=== PATIENT | male | born 1960 | race Caucasian/White ===

== ENCOUNTER 2017-06-08 21:48 | Outpatient (CLI) | payer BC ==
--- NOTE | 2017-06-08 23:52 | Ultrasound Preliminary Report ---
Exam: US ABDOMEN LIMITED IMPRESSION: 1. Diffuse heterogeneous, enlarged and echogenic liver. No mass. Findings are nonspecific but could r epresent fatty infiltration. 2. Mildly distended gallbladder without evidence of gallstones or sonographic Carrington sign. 3. Normal caliber common bile duct. RADIA The call report notification system was initiated by Dr. Rachele Tello at 23:46 hrs on 06/08/17. The above findings were discussed with KRISTEN Elaine PA by Dr. Rachele Tello at 23:51 hrs on . SITE ID: [id number]
--- NOTE | 2017-06-09 00:06 | Ultrasound Report ---
EXAM: ABDOMEN ULTRASOUND LIMITED, RUQ EXAM DATE: 06/08/2017 10:54 PM. CLINICAL HISTORY: Right upper quadrant. COMPARISON: None. TECHNIQUE: Real-time scanning was performed with static images obtained. FINDINGS: Liver: Diffusely echogenic and heterogeneous liver parenchyma. No mass. Right liver measures 19.9 cm. Main portal vein flow: Hepatopetal. Gallbladder: Distended gallbladder. No gallstones are noted. No definite gallbladder wall thickening or pericholecystic fluid. Biliary System: CBD measures 5 mm. No intrahepatic or extrahepatic ductal dilatation. Other: Right kidney measures 12.3 cm in length. No hydronephrosis. Small amount of fluid is present i n the upper abdomen. IMPRESSION: 1. Diffusely heterogeneous, enlarged and echogenic liver. No mass. Findings are nonspecific but could represent fatty infiltration. 2. Mildly distended gallbladder without evidence of gallstones or sonographic Carrington sign. 3. Normal caliber common bile duct. RADIA The call report notification system was initiated by Dr. Rachele Tello at 23:46 hrs on 06/08/17. The above findings were discussed with KRISTEN Elaine, PA by Dr. Rachele Tello at 23:51 hrs on . Referring Provider Line: [phone] SITE ID: [id number]
[2017-06-09 00:29] LABS: BASOPHILS # (AUTO) 0.1 10^3/uL (0.0-0.1); BASOPHILS % (AUTO) 1.2 %; EOSINOPHILS # (AUTO) 0.2 10^3/uL (0.0-0.7); EOSINOPHILS % (AUTO) 1.8 %; HGB - HEMOGLOBIN 16.2 g/dL (14.0-18.0); LYMPHOCYTES # (AUTO) 2.4 10^3/uL (1.5-3.5); LYMPHOCYTES % (AUTO) 22.1 %; MEAN CORPUSCULAR HGB CONC 34.4 g/dL (32.0-36.0); MEAN CORPUSCULAR VOLUME 87.1 fL (80.0-94.0); MEAN PLATELET VOLUME 7.7 fL (7.4-11.4); MONOCYTES # (AUTO) 0.8 10^3/uL (0.0-1.0); MONOCYTES % (AUTO) 7.7 %; NEUTROPHILS # (AUTO) 7.3 10^3/uL (1.5-6.6); NEUTROPHILS % (AUTO) 67.2 %; PLT - PLATELET COUNT 275 10^3/uL (130-450); RED CELL DISTRIBUTION WIDTH 13.4 % (12.0-15.0); WHITE BLOOD COUNT 10.8 x10^3/uL (4.8-10.8)
[2017-06-09 00:33] LABS: ALBUMIN 4.5 g/dL (3.2-5.5); ALBUMIN/GLOBULIN RATIO 1.4 (1.0-2.2); BILIRUBIN,TOTAL 1.1 mg/dL (0.2-1.0); CALCIUM 9.5 mg/dL (8.5-10.3); CREATININE 0.9 mg/dL (0.6-1.2); TOTAL PROTEIN 7.7 g/dL (6.7-8.2)
[2017-06-09 17:59] LABS: AMYLASE 43 U/L (28-100); LIPASE 16 U/L (22-51)
== END 2017-06-08 21:49 | disposition home or self-care (01) ==
LOC: DI 21:48
PROVIDERS: ATTEND Physician Assistant
DX: R16.0 Hepatomegaly, not elsewhere classified (principal); K82.8 Other specified diseases of gallbladder
CPT/HCPCS: 36415; 76705; 80053; 82150; 83690; 85025

== ENCOUNTER 2017-06-09 15:46 | Outpatient (CLI) | payer BC ==
[2017-06-09] MEDS ORDERED: IOPAMIDOL-300 50 ML VIAL ONE (16:05)
[2017-06-09] MEDS ORDERED: IOPAMIDOL-300 100 ML VIAL ONE (16:05)
[2017-06-09] MEDS ORDERED: IOPAMIDOL-300 50 ML VIAL PO ONE (17:31)
[2017-06-09] MEDS ORDERED: IOPAMIDOL-300 100 ML VIAL IVP ONE (17:31)
--- NOTE | 2017-06-09 18:41 | CT Report ---
EXAM: CT ABDOMEN AND PELVIS EXAM DATE: 06/09/2017 05:19 PM. CLINICAL HISTORY: Right upper quadrant/ right lower quadrant pain. Diverticulitis? COMPARISONS: None. TECHNIQUE: Routine helical CT imaging was performed through the abdomen and pelvis. IV contrast: 100 mL of Isovue-300. Enteric contrast: Yes. Reconstructions: Coronal and sagittal. In accordance with CT protocol optimization, one or more of the following dose reduction techniques w ere utilized for this exam: automated exposure control, adjustment of mA and/or KV based on patient s ize, or use of iterative reconstructive technique. FINDINGS: Lung Bases: Posterior right base atelectasis/scarring. Liver: Normal. No masses. Gallbladder/Bile Ducts: Unremarkable. Spleen: Normal. Pancreas: Normal. Adrenal Glands: Normal. Kidneys: Normal. No masses or hydronephrosis. Peritoneal Cavity/Bowel: Irregular ring-shaped fat stranding anterior to the right colon. Trace free fluid. No free air or adenopathy. No masses or acute inflammatory process. The appendix is well visua lized and normal. Pelvic Organs: The prostate and bladder are unremarkable. Vasculature: No aneurysms or other significant abnormality. Bones: Degenerative disk disease at L5-S1. Other: Fat-containing umbilical hernia. IMPRESSION: 1. Irregular ring-shaped fat stranding anterior to the right colon compatible with epiploic appendagi tis. 2. Trace free fluid. 3. Fat-containing umbilical hernia noted. RADIA The call report notification system was initiated by Dr. Danish Alston at 17:53 hrs on 06/09/17. The above findings were discussed with AnneM-arie Love by Dr. Danish Alston at 18:14 hrs on 06/09/17. Referring Provider Line: [phone] SITE ID: [id number]
== END 2017-06-09 15:47 | disposition home or self-care (01) ==
LOC: DI 15:46
PROVIDERS: ATTEND Physician Assistant
DX: R10.11 Right upper quadrant pain (principal); R10.31 Right lower quadrant pain; K42.9 Umbilical hernia without obstruction or gangrene; R93.5 Abnormal findings on diagnostic imaging of other abdominal regions, including retroperitoneum
CPT/HCPCS: 74177; Q9967

== ENCOUNTER 2024-03-15 09:33 | Inpatient (IN) ==
[2024-03-15] MEDS: SODIUM CHLORIDE 0.9% 1,000 ML IV STA ×4 (10:11→15:11)
[2024-03-15 10:15] LABS: BASOPHILS % (AUTO) 0.5 %; EOSINOPHILS # (AUTO) 0.1 10^3/uL (0.0-0.7); EOSINOPHILS % (AUTO) 1.3 %; HCT - HEMATOCRIT 47.4 % (42.0-52.0); HGB - HEMOGLOBIN 16.2 g/dL (14.0-18.0); LYMPHOCYTES # (AUTO) 0.4 10^3/uL (1.5-3.5); LYMPHOCYTES % (AUTO) 5.8 %; MEAN CORPUSCULAR HEMOGLOBIN 29.3 pg (27.0-31.0); MEAN CORPUSCULAR HGB CONC 34.2 g/dL (32.0-36.0); MEAN CORPUSCULAR VOLUME 85.9 fL (80.0-94.0); MEAN PLATELET VOLUME 9.6 fL (7.4-11.4); MONOCYTES # (AUTO) 0.1 10^3/uL (0.0-1.0); MONOCYTES % (AUTO) 1.9 %; NEUTROPHILS # (AUTO) 6.7 10^3/uL (1.5-6.6); NEUTROPHILS % (AUTO) 90.2 %; PLT - PLATELET COUNT 103 10^3/uL (130-450); RED BLOOD COUNT 5.52 10^6/uL (4.70-6.10); RED CELL DISTRIBUTION WIDTH 12.6 % (12.0-15.0); WHITE BLOOD COUNT 7.4 x10^3/uL (4.8-10.8)
--- NOTE | 2024-03-15 10:23 | ED Physician Documentation ---
History of Present Illness Stated complaint Stated Complaint: CHILLS, FEVER, VOMITTING Chief complaint Chief Complaint: Fever History obtained from History obtained from: Patient Additonal information Additional information: 63-year-old male presents to the emergency department with fever and bodyaches ongoing for the past 2 days. No cough or congestion. Nothing seems to make it worse. States took a COVID test that was negative. He denies any abdominal pain or back pain. No neck pain. No headache. He states he did have 1 episode of emesis. No diarrhea. No recent travel. No antibiotics. He states that he does take medications at home but he does not know which ones. Denies any implanted medical devices. No sore throat. No rash. No rhinorrhea. 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 Review of Systems Constitutional Reports: Fever, Chills and Malaise Ears, nose, mouth, and throat Denies: Ear pain, Nasal congestion or Throat pain Cardiovascular Denies: chest pain Respiratory Denies: Cough Gastrointestinal Denies: Abdominal pain Meds/Allgy Home Medications Ambulatory Orders Medication Instructions Recorded Confirmed atorvastatin 40 mg tablet mg 03/15/24 glipizide 5 mg tablet mg 03/15/24 metformin 500 mg tablet,extended mg PO 03/15/24 release 24 hr Allergies Allergies Allergy/AdvReac Type Severity Reaction Status Date / Time Sulfa (Sulfonamide Allergy Unknown Hives Verified 03/15/24 09:55 Antibiotics) [facility] Medical History Medical History (Updated 03/15/24 @ 15:14 by Jose Angelo MD) Prediabetes Social History Social History (Updated 03/15/24 @ 09:53 by Evangelina Dow, RN, BSN) Smoking Status: Unknown if ever smoked Do you dip or chew tobacco?: Yes Relationship: Do you feel safe in your home environment?: Yes Suffered physical, verbal, emotional, or financial abuse?: No Exam Constitutional normal general appearance and no apparent distress HENMT normocephalic, TMs normal bilaterally, oral mucous membranes normal and oropharynx normal Eyes PERRL No conjunctival injection Neck/C-Spine visual inspection normal and no meningeal signs Lymph No cervical lymphadenopathy Chest inspection of chest normal Respiratory breath sounds equal bilaterally and normal respiratory effort Cardiovascular normal heart rate noted, regular rhythm noted and no murmur Gastrointestinal abdomen normal to inspection, abdomen soft to palpation, nontender to palpation and nondistended Genitourinary no CVA tenderness Back/Pelvis no thoracic spine tenderness and no lumbar spine tenderness Extremities normal to inspection and normal to palpation Neurology GCS 15 Psychiatry mental status grossly normal and oriented x3 Skin no rash Results Vitals Vitals: Vital Signs - 24 hr 03/15/24 09:36 03/15/24 10:30 03/15/24 11:00 Temperature 37.2 C Temperature Source Oral Pulse Rate 101 H 90 93 H Respiratory Rate 28 H 26 H 30 H Blood Pressure 135/100 H 145/96 H 148/87 H O2 Saturation 93 92 96 O2 Source Room air Room air Room air Pain Intensity 0 03/15/24 11:30 03/15/24 12:00 03/15/24 12:30 Temperature Temperature Source Pulse Rate 94 H 92 H 95 H Respiratory Rate 30 H 31 H 33 H Blood Pressure 133/95 H 147/101 H 151/93 H O2 Saturation 96 94 94 O2 Source Room air Room air Room air Pain Intensity 3 0 03/15/24 13:00 03/15/24 14:00 03/15/24 14:18 Temperature 39.1 C H Temperature Source Oral Pulse Rate 97 H 118 H Respiratory Rate 35 H Blood Pressure 155/75 H 189/96 H O2 Saturation 94 94 O2 Source Room air Pain Intensity 3 4 0 03/15/24 14:30 03/15/24 15:00 03/15/24 15:30 Temperature Temperature Source Pulse Rate 115 H 111 H 105 H Respiratory Rate 35 H 28 H 35 H Blood Pressure 152/127 H 151/90 H 147/95 H O2 Saturation 94 93 O2 Source Room air Room air Room air Pain Intensity 0 0 0 03/15/24 15:59 Temperature 37.7 C Temperature Source Oral Pulse Rate Respiratory Rate Blood Pressure O2 Saturation O2 Source Pain Intensity 0 Oxygen O2 Source Room air Labs Labs: Laboratory Tests 03/15/24 03/15/24 03/15/24 10:07 10:25 12:16 WBC 7.4 RBC 5.52 Hgb 16.2 Hct 47.4 MCV 85.9 MCH 29.3 MCHC 34.2 RDW 12.6 Plt Count 103 L MPV 9.6 Neut # (Auto) 6.7 H Lymph # (Auto) 0.4 L Sanders # (Auto) 0.1 Eos # (Auto) 0.1 Baso # (Auto) 0.0 Absolute Nucleated RBC 0.00 Nucleated RBC % 0.0 PT INR APTT Sodium 130 L Potassium 3.9 Chloride 95 L Carbon Dioxide 24 Anion Gap 11.0 BUN 20 Creatinine 1.3 Estimated GFR (MDRD) 56 L Glucose 295 H Lactic Acid Calcium 8.5 Total Bilirubin 2.9 H AST 420 H ALT 395 H Alkaline Phosphatase 54 Total Protein 6.2 L Albumin 4.1 Globulin 2.1 Albumin/Globulin Ratio 2.0 Lipase 13 Procalcitonin Immunoas Urine Color Urine Clarity Urine pH Ur Specific [place] Urine Protein Urine Glucose (UA) Urine Ketones Urine Occult Blood Urine Nitrite Urine Bilirubin Urine Urobilinogen Ur Leukocyte Esterase Urine RBC Urine WBC Ur Epithelial Cells Ur Squamous Epith Cells Urine Bacteria Urine Casts Ur Microscopic Review Urine Culture Comments Nasal Adenovirus (PCR) NOT DETECTED Nasal B. parapertussis DNA (PCR) NOT DETECTED Nasal Coronavir 229E PCR NOT DETECTED Nasal Coronavir HKU1 PCR NOT DETECTED Nasal Coronavir NL63 PCR NOT DETECTED Nasal Coronavir OC43 PCR NOT DETECTED Nasal Enterovir/Rhinovir PCR NOT DETECTED Nasal Influenza B PCR NOT DETECTED Nasal Influenza A PCR NOT DETECTED Nasal Parainfluen 1 PCR NOT DETECTED Nasal Parainfluen 2 PCR NOT DETECTED Nasal Parainfluen 3 PCR NOT DETECTED Nasal Parainfluen 4 PCR NOT DETECTED Nasal RSV (PCR) NOT DETECTED Nasal B.pertussis DNA PCR NOT DETECTED Nasal C.pneumoniae (PCR) NOT DETECTED Ramon Human Metapneumo PCR NOT DETECTED Nasal M.pneumoniae (PCR) NOT DETECTED Nasal SARS-CoV-2 (PCR) NOT DETECTED Infectious Sanders Assay NEGATIVE 03/15/24 03/15/24 03/15/24 13:09 14:15 14:17 WBC RBC Hgb Hct MCV MCH MCHC RDW Plt Count MPV Neut # (Auto) Lymph # (Auto) Sanders # (Auto) Eos # (Auto) Baso # (Auto) Absolute Nucleated RBC Nucleated RBC % PT INR APTT Sodium Potassium Chloride Carbon Dioxide Anion Gap BUN Creatinine Estimated GFR (MDRD) Glucose Lactic Acid 7.2 H* Calcium Total Bilirubin AST ALT Alkaline Phosphatase Total Protein Albumin Globulin Albumin/Globulin Ratio Lipase Procalcitonin Immunoas 18.56 H* Urine Color DARK YELLOW Urine Clarity CLEAR Urine pH 5.5 Ur Specific [place] >=1.030 H Urine Protein 30 H Urine Glucose (UA) >=1000 H Urine Ketones 15 H Urine Occult Blood LARGE H Urine Nitrite NEGATIVE Urine Bilirubin NEGATIVE Urine Urobilinogen 0.2 (NORMAL) Ur Leukocyte Esterase NEGATIVE Urine RBC 6-10 H Urine WBC 0-3 Ur Epithelial Cells RARE Renal Tubular Ur Squamous Epith Cells NONE SEEN Urine Bacteria Few Urine Casts 0-2 Hyaline Casts Ur Microscopic Review INDICATED Urine Culture Comments NOT INDICATED Nasal Adenovirus (PCR) Nasal B. parapertussis DNA (PCR) Nasal Coronavir 229E PCR Nasal Coronavir HKU1 PCR Nasal Coronavir NL63 PCR Nasal Coronavir OC43 PCR Nasal Enterovir/Rhinovir PCR Nasal Influenza B PCR Nasal Influenza A PCR Nasal Parainfluen 1 PCR Nasal Parainfluen 2 PCR Nasal Parainfluen 3 PCR Nasal Parainfluen 4 PCR Nasal RSV (PCR) Nasal B.pertussis DNA PCR Nasal C.pneumoniae (PCR) Ramon Human Metapneumo PCR Nasal M.pneumoniae (PCR) Nasal SARS-CoV-2 (PCR) Infectious Sanders Assay 03/15/24 16:10 WBC RBC Hgb Hct MCV MCH MCHC RDW Plt Count MPV Neut # (Auto) Lymph # (Auto) Sanders # (Auto) Eos # (Auto) Baso # (Auto) Absolute Nucleated RBC Nucleated RBC % PT 18.7 H INR 1.8 H APTT 26.3 Sodium Potassium Chloride Carbon Dioxide Anion Gap BUN Creatinine Estimated GFR (MDRD) Glucose Lactic Acid 3.7 H* Calcium Total Bilirubin AST ALT Alkaline Phosphatase Total Protein Albumin Globulin Albumin/Globulin Ratio Lipase Procalcitonin Immunoas Urine Color Urine Clarity Urine pH Ur Specific [place] Urine Protein Urine Glucose (UA) Urine Ketones Urine Occult Blood Urine Nitrite Urine Bilirubin Urine Urobilinogen Ur Leukocyte Esterase Urine RBC Urine WBC Ur Epithelial Cells Ur Squamous Epith Cells Urine Bacteria Urine Casts Ur Microscopic Review Urine Culture Comments Nasal Adenovirus (PCR) Nasal B. parapertussis DNA (PCR) Nasal Coronavir 229E PCR Nasal Coronavir HKU1 PCR Nasal Coronavir NL63 PCR Nasal Coronavir OC43 PCR Nasal Enterovir/Rhinovir PCR Nasal Influenza B PCR Nasal Influenza A PCR Nasal Parainfluen 1 PCR Nasal Parainfluen 2 PCR Nasal Parainfluen 3 PCR Nasal Parainfluen 4 PCR Nasal RSV (PCR) Nasal B.pertussis DNA PCR Nasal C.pneumoniae (PCR) Ramon Human Metapneumo PCR Nasal M.pneumoniae (PCR) Nasal SARS-CoV-2 (PCR) Infectious Sanders Assay Rads (name of study) cxr: Relevant Findings:: Final report received ct abd/pelvis: Relevant Findings:: Final report received RUQ US: Relevant Findings:: Final report received PD Medical Decision Making ED course Complexity details: reviewed results and d/w patient ED course: 63-year-old male with a history of diabetes presents with fever. Unclear etiology. No acute findings on chest x-ray, right upper quadrant ultrasound or CT abdomen pelvis to explain his symptoms. Does have elevation of his liver function tests and mild elevation of his bilirubin. Acute hepatitis panel was sent. Blood cultures drawn. Lactic acid elevated at 7.2. Procalcitonin elevated at 18.56. White blood cell count normal. Spiked another fever in the emergency department. Treated with Motrin. Covered with vancomycin and Zosyn. Could potentially be a viral syndrome with the thrombocytopenia and lymphopenia. But given the elevation of lactate and procalcitonin, we will admit for further care. He is persistently tachycardic as well. Discussed the case with Dr. Mohamud, hospitalist who accepts. This document was made in part using voice recognition software. While efforts are made to proofread this document, sound alike and grammatical errors may occur. Discharge Plan Discharge Patient Disposition: 68 [facility] DC/Xfer Condition: Stable Clinical Impression: Fever Qualifiers: Fever type: unspecified Qualified Code(s): R50.9 - Fever, unspecified Sepsis Qualifiers: Sepsis type: sepsis due to unspecified organism Sepsis acute organ dysfunction status: unspecified Qualified Code(s): A41.9 - Sepsis, unspecified organism
[2024-03-15 10:45] LABS: ALBUMIN 4.1 g/dL (3.2-5.5); BILIRUBIN,TOTAL 2.9 mg/dL (0.2-1.0); CALCIUM 8.5 mg/dL (8.5-10.3); CREATININE 1.3 mg/dL (0.6-1.3); POTASSIUM 3.9 mmol/L (3.5-4.5); TOTAL PROTEIN 6.2 g/dL (6.4-8.9)
--- NOTE | 2024-03-15 10:50 | XRAY Report ---
PROCEDURE: XR Chest 1V INDICATIONS: fever TECHNIQUE: One view of the chest was acquired. COMPARISON: None. FINDINGS: Whtq-bi-lpeatioj bilateral perihilar and lower lobe peribronchial thickening with patchy opacities mo re than expected for expiratory result and bibasilar subsegmental atelectasis. Bronchitis, viral inf ection, bronchopneumonia, asthma or other process should be considered. Follow-up suggested. Moderately elevated right hemidiaphragm compared to the left. Less likely represent right subpulmonic effusion given the appearance. Xitf-og-mbigbcylbo prominent [place], pulmonary vascular congestion and possible hilar lymph nodes. No pneumothorax, no pleural effusion. Cardiopericardial silhouette within normal limits in size. IMPRESSION: Gsmw-up-iujvsply peribronchial thickening and patchy opacities as discussed above. Mild to moderately prominent val[place]. Moderately elevated right hemidiaphragm. Follow-up suggested. If symptoms persist or worsen, or there is high clinical suspicion of abnormalit y, MRI could be performed. Reviewed by: Houston Shepard MD on 03/15/2024 10:49 AM PST Approved by: Houston Shepard MD on 03/15/2024 10:49 AM PST Station ID: [id number]
[2024-03-15 11:14] LABS: B. PARAPERTUSSIS- RESP PCR PAN NOT DETECTED; B. PERTUSSIS- RESP PCR PANEL NOT DETECTED; C. PNEUMONIAE- RESP PCR PANEL NOT DETECTED; CORONAVIRUS 229E-RESP PCR NOT DETECTED; CORONAVIRUS HKU1-RESP PCR NOT DETECTED; CORONAVIRUS NL63-RESP PCR NOT DETECTED; CORONAVIRUS OC43-RESP PCR NOT DETECTED; HUMAN METAPNEUMOVIRUS NOT DETECTED; INFLUENZA A- RESP PCR PANEL NOT DETECTED; INFLUENZA B - RESP PCR PANEL NOT DETECTED; M. PNEUMONIAE- RESP PCR PANEL NOT DETECTED; PARAINFLUENZA VIRUS 1 NOT DETECTED; PARAINFLUENZA VIRUS 2 NOT DETECTED; PARAINFLUENZA VIRUS 3 NOT DETECTED; PARAINFLUENZA VIRUS 4 NOT DETECTED; RHINOVIRUS/ENTEROVIRUS NOT DETECTED; RSV- RESP PCR PANEL NOT DETECTED; SARS-CoV-2 -RESP PCR PANEL NOT DETECTED
[2024-03-15] MEDS ORDERED: iohexoL-300 100 ML VIAL ONE ×2 (12:21→19:39)
[2024-03-15 12:26] LABS: INFECTIOUS MONONUCLEOSIS NEGATIVE (Negative)
[2024-03-15 13:17] LABS: BILIRUBIN,URINE NEGATIVE (NEGATIVE); GLUCOSE, URINE (UA) >=1000 mg/dL (NEGATIVE); KETONES,URINE (UA) 15 mg/dL (NEGATIVE); LEUKOCYTE ESTERASE, URINE NEGATIVE (NEGATIVE); NITRITE,URINE NEGATIVE (NEGATIVE); OCCULT BLOOD,URINE LARGE (NEGATIVE); PH,URINE 5.5 PH (5.0-7.5); PROTEIN,URINE 30 mg/dL (NEGATIVE); UROBILINOGEN,URINE 0.2 (NORMAL) E.U./dL (NORMAL)
[2024-03-15 13:18] LABS: CLARITY,URINE CLEAR (CLEAR)
[2024-03-15 13:25] LABS: BACTERIA,URINE Few /HPF (None Seen); CASTS, URINE 0-2 Hyaline Casts /LPF; EPITHELIAL CELLS,UR RARE Renal Tubular /HPF (<= Few); SQUAMOUS EPITHELIAL CELL,UR NONE SEEN (<= Few); WBC,URINE 0-3 /HPF (0-3)
--- NOTE | 2024-03-15 13:40 | Ultrasound Report ---
PROCEDURE: US Abdomen Limited INDICATIONS: fever RUQ pain, elevated LFT TECHNIQUE: Real-time focused scanning was performed of the abdomen, with image documentation. COMPARISONS: CT of abdomen and pelvis dated 06/09/2017 and ultrasound of abdomen dated 06/08/2017. FINDINGS: Liver: Liver is mildly enlarged and measures 17.9 cm in length. Heterogeneous liver parenchymal echo texture is seen. Gallbladder: Limited evaluation of gallbladder due to overlying bowel gas. No gallstone is seen. No g allbladder wall thickening or pericholecystic fluid. No sonographic Carrington's sign. Biliary ducts: Intrahepatic bile ducts are non-dilated. Extrahepatic biliary ducts are not well seen . No gross dilated duct is seen. Pancreas: Not well visualized due to overlying bowel gas. Right kidney: Normal in size and echotexture. Right kidney measures 11.8 cm long. No hydronephrosis or nephrolithiasis. No solid masses. No complex renal cystic lesions which require follow-up. IVC: Intrahepatic inferior vena cava is patent. Miscellaneous: No free abdominal fluid. IMPRESSION: 1. Limited study due to patient's body habitus and overlying bowel gas. 2. Borderline hepatomegaly and hepatic steatosis, no discrete hepatic lesion. 3. No sonographic evidence of cholelithiasis or acute cholecystitis. No intrahepatic biliary ductal d ilatation. Common bile that is not well seen. No obvious biliary ductal dilatation. 4. Pancreas is not visualized. Right kidney is within normal limits. Reviewed by: Jasper Murrell MD on 03/15/2024 1:39 PM PST Approved by: Jasper Murrell MD on 03/15/2024 1:39 PM PST Station ID: [id number]
--- NOTE | 2024-03-15 13:48 | CT Report ---
PROCEDURE: CT Abdomen/Pelvis W INDICATIONS: fever, elevated LFT CONTRAST: omni 300, 100 TECHNIQUE: After the administration of intravenous contrast, a CT scan of the abdomen and pelvis was performed. Images were recorded and evaluated at appropriate window settings. Reformats: coronal and sagittal. F or radiation dose reduction, the following was used: automated exposure control, adjustment of mA and /or kV according to patient size. COMPARISON: Ultrasound of abdomen from the same day and CT of abdomen and pelvis dated 06/09/2017. FINDINGS: Image quality: Diagnostic. Lower chest: Scarring/atelectasis in posterior medial right lung base is seen. Heart size is normal, no pericardial effusion. Liver: No solid mass. Hepatomegaly and moderate to severe hepatic steatosis is seen. Gallbladder: No radiopaque stones or wall thickening. Biliary tree: No intrahepatic or extrahepatic dilation, accounting for age. Spleen: No splenomegaly. Pancreas: No pancreatic ductal dilation. Adrenals: No adrenal nodule. Kidneys and ureters: No hydronephrosis. No renal cystic lesion which requires follow up. No solid mas s. Stomach, bowel and peritoneum: No gastric or small bowel dilation. No abnormal wall thickening. No pa thologic free fluid. The appendix is visualized in right lower quadrant and is within normal limits. No peritoneal free air. No abscess collection. Lymph nodes: No central or retroperitoneal adenopathy. Vessels: No infrarenal aortic aneurysm. Patent portal vein. PELVIS Reproductive organs: Unremarkable. Bladder: No abnormal wall thickening, accounting for underdistention. Pelvic lymph nodes: No pelvic adenopathy by size criteria. Bones: No aggressive osseous abnormality. Degenerative endplate changes are noted in lumbar spine. Gr alfred 1 5 mm retrolisthesis of L5 on S1 is seen. Other: Small fat-containing umbilical hernia is seen. No significant inguinal hernia. IMPRESSION: 1. Hepatomegaly and moderate to severe hepatic steatosis, no discrete hepatic lesion. 2. Normal-appearing gallbladder. No biliary ductal dilatation. 3. No bowel obstruction or abnormal bowel wall thickening. Normal appendix. No free fluid of free air . Reviewed by: Jasper Mills MD on 03/15/2024 1:47 PM PST Approved by: Jasper Mills MD on 03/15/2024 1:47 PM PST Station ID: [id number]
[2024-03-15] MEDS: ONDANSETRON 4 MG/2 ML VIAL IVP STA (14:18)
[2024-03-15] MEDS: IBUPROFEN 800 MG TABLET PO STA (14:18)
[2024-03-15] MEDS: iohexoL-300 100 ML VIAL IVP ONE (14:21)
[2024-03-15] MEDS: PIPERACILLIN/TAZOBACTAM 4.5 GM in SODIUM CHLORIDE 0.9% MINIBAG 100 ML IV STA (15:42)
[2024-03-15] MEDS: VANCOMYCIN INJ 1.75 GM in SODIUM CHLORIDE 0.9% 500 ML IV ONE (15:43)
[2024-03-15] MEDS: VANCOMYCIN INJ 1.75 GM in SODIUM CHLORIDE 0.9% 500 ML IV SCH (16:00)
[2024-03-15 16:24] LABS: PARTIAL THROMBOPLASTIN TIME 26.3 secs (24.9-33.3)
[2024-03-15 16:28] LABS: INR 1.8 (0.8-1.2); PT - PROTHROMBIN TIME 18.7 secs (9.9-12.6)
[2024-03-15 16:32] LABS: LACTIC ACID, VENOUS 3.7 mmol/L (0.5-2.2)
[2024-03-15] MEDS ORDERED: VANCOMYCIN INJ 1 GM in SODIUM CHLORIDE 0.9% 500 ML IV SCH (17:00)
[2024-03-15] MEDS ORDERED: oxyCODONE 5 MG TABLET PO PRN (17:22)
[2024-03-15] MEDS ORDERED: ONDANSETRON ODT 4 MG TABLET TL PRN (17:22)
[2024-03-15] MEDS ORDERED: SODIUM CHLORIDE FLUSH 0.9% 10 ML SYRINGE IVP PRN (17:22)
--- NOTE | 2024-03-15 18:02 | HISTORY & PHYSICAL EXAMINATION ---
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 He states that he woke up at 3 in the morning on March 14 with his teeth chattering. Sudden onset. The next day he managed to deliver some cattle for [place], came home and just spent the rest of his day asleep. Fever was up to 106. Today, when the fever would not go away with Motrin and Tylenol he came to the emergency room. His last recent travel was to go grouse hunting in December. He did not drink any ground water. He drank his own bottle water that he took with him. Otherwise he has been home. I do have well water. He drinks that. As far as he knows the water is okay. It supposed to be checked every year but he cannot remember when the last time it was. The family drinks from the same well and no one else is sick. He does raise cattle, pulido, and hogs for the [employer] business that sells meat. He is shoveling maneuver, works his herds, and does have exposure to a barn. Nobody else in his family is sick. He has not had any changes in diet. This year he did have a bout of diarrhea that went on for several weeks. He noticed that the diarrhea only happened when he was home but not when he was traveling for work in [employer]. He finally figured out that he thinks it was a crack in his coffee cup. It was a double lumen cup. That may be bacteria got caught on it and he was drinking it. Once he stopped drinking out of that cup, his diarrhea stopped. He did have a colonoscopy about 11 years ago. It was normal. On review of systems he wears glasses, but denies photophobia, headache, sore throat, runny nose, eustachian tube dysfunction or ear pain. He denies neck pain, adenopathy of his neck. He denies cough, chest congestion, chest pain, pleuritic or otherwise. He has no history of lung disease. He chews tobacco but does not smoke. He denies chest pain, palpitations, any recent change in cardiovascular endurance until he got this fever. He has no pedal edema. Orthopnea. Right now he has diffuse musculoskeletal pain from the fever. He is miserable with it. But no specific joint pain, skin changes, body rashes. He denies depression, anxiety. He has been under tremendous amount of stress. 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 He is awaiting the final vote count. He has developed decree stream, nocturia once at night. He thinks he may be developing prostate problems. But there has been no urgency, frequency, dysuria or flank pain. No blood in his urine. Other than the diarrhea no other change in bowel habits. Denies unexpected weight changes, weight gains. No heat or cold intolerance. He denies seizures, syncope, memory loss. Denies photophobia, headache, nuchal rigidity. In the emergency room he was examined by the primary ER provider and he has not been hypotensive. In fact blood pressure has been on the high side in the 140s systolic and occasionally as high as 189/96. O2 sats have been normal on room air. Pulse has been tachycardic consistently. Mainly associated with fever. High as 118. Other than the fever, his exam is been normal. Sodium is mildly hyponatremic 130 for him. Chloride is low at 95. His GFR has dropped to 56 from his normal 88. His creatinine has increased to 1.3 from his normal 0.9. Glucose is 295. He is taking his glipizide and his metformin. Lactic acid is 7.2. Total bili has been intermittently elevated in the past but the highest has been is 1.1. He is 2.9 tonight. AST and ALT in the past have been normal. And tonight they are 420 and 395 respectively. White cell count is normal at 7.4. Hemoglobin 16.2. Stable from previous labs. Platelet is low at 103 and he was 275 in the past. Urinalysis has a specific gravity that is high at 1.030 so I believe he is dehydrated. He has proteinuria 30 mg/dL. He has glucosuria over 1000 mg/dL. Ketones are high at 15. Occult blood is large, with 6-10 red cells per high-powered field. No leukocyte Estrace. No urine bilirubin. No urine urobilinogen. Rare renal tubular cells. Because his liver enzymes were elevated he underwent an ultrasound but it was limited due to the patient's obesity and overlying bowel gas. He has borderline hepatomegaly and hepatic steatosis with no discrete lesions. There is no sonographic evidence of cholelithiasis, acute cholecystitis. Pancreas not well- visualized. As such a CT of the abdomen was done to visualize his belly better and he has scarring and atelectasis in the posterior medial right lung. Liver has hepatomegaly with moderate to severe hepatic steatosis. Gallbladder without stones. Or wall thickening. No splenomegaly and no intrahepatic or extrahepatic dilation. No pancreatic ductal dilatation. No adrenal nodules. No renal cyst, no hydronephrosis. There is no commentary on the prostate. Stomach, bowel, peritoneum are normal. Appendix is visualized and within normal limits. No central or retroperitoneal adenopathy. No aortic aneurysms, patent portal vein. He has a small fat-containing umbilical hernia. He states that his diabetes is controlled. He denies any retinal, renal, neurologic complications. He has never been hospitalized. He has no orthopedic injuries. And is never had surgery. Meds/Allgy Home Medications Ambulatory Orders Medication Instructions Recorded Confirmed atorvastatin 40 mg tablet mg 03/15/24 glipizide 5 mg tablet mg 03/15/24 metformin 500 mg tablet,extended mg PO 03/15/24 release 24 hr Allergies Allergies Allergy/AdvReac Type Severity Reaction Status Date / Time Sulfa (Sulfonamide Allergy Unknown Hives Verified 03/15/24 09:55 Antibiotics) [facility] Medical History Medical History (Updated 03/15/24 @ 18:37 by Catherine Mohamud MD) Controlled type 2 diabetes mellitus without complication, without long-term current use of insulin Hypertension Hyperlipidemia Family History Family History (Updated 03/15/24 @ 18:28 by Catherine Mohamud MD) Father CVA (cerebral vascular accident) Mother Brother Alcoholism Alcohol abuse Sister Healthy adult on routine physical examination Brother Healthy adult on routine physical examination Daughter Lupus (systemic lupus erythematosus) Daughter Healthy adult on routine physical examination Daughter Healthy adult on routine physical examination Social History Social History (Updated 03/15/24 @ 18:31 by Catherine Mohamud MD) Smoking Status: Never smoker Second hand tobacco smoke exposure: No Do you dip or chew tobacco?: Yes Do you vape?: No Initiate information on smoking cessation: No Living arrangement: At home Marital Status: Living Condition: With family Support Person: Yes Relationship: Spouse Living Situation Details: lives with , 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 Dresses himself, feed himself. Pays bills. Very active life. 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 POLST Patient has POLST: No POLST Status: Full Code Review of Systems Status of ROS: 10 or more systems reviewed and unremarkable except as noted in history and below Ears, nose, mouth, and throat Denies: Throat swelling Hematologic/Lymphatic Denies: Anemia, Easy bruising or Petechiae Allergic/Immunologic Denies: Hives, Throat swelling, Tongue swelling or Facial swelling Prior Level of Functionality: As above. Exam Exam Morbidly obese white male who looks stated age, bearded, cheeks are flushed, skin is hot to touch, eyes are glazed. Able to go from ER gurney to the bed with standby assist but wobbly on his feet. He tells me he has a very foggy brain and cannot think very clearly. Constitutional normal general appearance HENMT hearing grossly normal bilaterally and TMs normal bilaterally Eyes PERRL, EOMs intact bilaterally, conjunctivae normal and no scleral icterus Neck/C-Spine trachea midline, supple, no meningeal signs, thyroid normal and no carotid bruits Lymph no lymphadenopathy noted Chest palpation of chest normal Respiratory breath sounds equal bilaterally, normal respiratory effort, clear to auscultation bilaterally, no wheezes, no rales, no retractions and no use of accessory muscles Large barrel chest Cardiovascular normal heart rate noted, regular rhythm noted (Very distant cardiac tones), no gallop, no rub, no murmur and no JVD Gastrointestinal abdomen soft to palpation, nontender to palpation, nontender to percussion and no hepatosplenomegaly Very large, obese abdominal pannus Genitourinary no CVA tenderness and external appearance normal Back/Pelvis spine normal to inspection and no lumbar spine tenderness Extremities normal to inspection, normal to palpation, no tenderness, full ROM, no joint enlargement and no deformity Neurology clinical training specialist II-XII intact, no movement abnormality noted, no focal motor deficit noted, no sensory deficits noted, speech normal and coordination normal Psychiatry mental status grossly normal Skin skin color normal, no rash, no lesions, no wounds, no lacerations and skin turgor normal Very hot to touch skin, diaphoretic face and neck Sepsis Event Note (H) Evaluation Current Stage of Sepsis: Sepsis Possible source of Sepsis: positive Unknown Sepsis Criteria Sepsis Criteria: Recorded Temperature greater than 38.3C or Less than 36C, Recorded Heart Rate greater than 90 bpm and Metabolic: lactate > 2 mmol/L Conclusion/Plan Problem List (1) Sepsis: Plan: This gentleman presents as fever, some encephalopathy with a fever, but a completely negative review of systems to give me a source of infection. Yet he meets the criteria for sepsis. I think most of the lactic acidosis is due to taking metformin in the face of a febrile illness. I have thought about upper respiratory tract infection, pharyngitis, thyroiditis, pneumonia, myocarditis, cholecystitis especially because of the liver enzymes, diverticulitis, urinary tract infection, skin infection such as cellulitis, rectal abscess, meningitis. He is review of systems and his physical exam do not direct me into any specific organ system or diagnoses listed above. 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 I thought of leptospirosis, Listeria, farmers lung. There are cases of Alvarado's lung with a chest x-ray is normal and the patient is not hypoxic. I do not think he is a candidate for lumbar puncture since exam does not indicate nuchal rigidity, photophobia, or headache. No visual changes. Plan: Inpatient status He has received 3 L of normal saline as he is transferred from the ER to the [facility]. I will give him IV fluids at 85 cc an hour Antipyretics such as Tylenol Motrin to control his fever and alternating doses Empiric antibiotic therapy for sepsis of unknown origin and that will include vancomycin twice daily, Zosyn, and Flagyl. I have spoken to the lab and I am told that the Listeria will show up on blood cultures. Those have already been done. I am going to be getting antibody for leptospirosis but that is a send out lab. He has hematuria that is not visible on UA. Does complain of some prostatism. But there is no white cell in the urine and it will not be sent off for culture. However, the Zosyn should cover that. If he continues to have a fever tomorrow, I will be getting a CT of the chest. And in spite of negative nuchal rigidity or headache, I will consider a lumbar puncture. Qualifiers: Sepsis acute organ dysfunction status: unspecified Sepsis type: sepsis due to unspecified organism Qualified Code(s): A41.9 - Sepsis, unspecified organism (2) Lactic acidosis: Plan: This gentleman has liver disease on CT scan. I explained to he and his what fatty liver means. He does not drink and has no history of alcohol abuse. So I suspect he has metformin, superimposed on fatty liver and fever are the cause of his lactic acidosis. I will repeat lactic acid until normal. (3) Uncontrolled type 2 diabetes mellitus, without long-term current use of insulin: Plan: At home he takes metformin and a sulfonylurea. In view of his rising creatinine, I will not be giving him his glyburide. I will give him Lantus 10 units at night and sliding scale insulin before each meal. Check A1c in the morning. (4) Acute kidney insufficiency: Plan: As manifested by a creatinine is gone from 0.9-1.3. However he is oral mucosa is pink and moist. His skin has good turgor. Dehydration may be intravascular strictly to fever and fluid losses from breathing and tachypnea. He is breathing at a respiratory rate of 24 to blow off the lactic acid. (5) Hypertension: Plan: No history of hypertension. Not on any medications in the outpatient setting. High in the ER. Which I am glad about considering he may be septic. Plan: Continue to monitor and give medication as needed if he gets above 180/90 (6) Fever: Plan: Of unknown source. Give Motrin and alternate with Tylenol Qualifiers: Fever type: unspecified Qualified Code(s): R50.9 - Fever, unspecified (7) Prostatism: Plan: By symptoms. No UTI on UA but he does have hematuria. Will add Flomax to his drug regimen today. Lab Results Lab results reviewed: Yes 03/15/24 10:07 03/15/24 10:25 Core Measures Anticipated LOS I expect patient to be DC'd or transferred within 96 hours.: Yes DVT/VTE - Prophylaxis VTE/DVT Prophylaxis med ordered at admit?: Yes
[2024-03-15] MEDS: SODIUM CHLORIDE FLUSH 0.9% 10 ML SYRINGE IVP SCH (18:05)
[2024-03-15] MEDS: INSULIN LISPRO 300 UNIT/3 ML PEN SUBQ SCH ×2 (18:06→18:50)
[2024-03-15] MEDS: metroNIDAZOLE 500 MG/100 ML 500 MG/100 ML BAG IV SCH (18:15)
[2024-03-15] MEDS: PIPERACILLIN/TAZOBACTAM 3.375 GM in SODIUM CHLORIDE 0.9% MINIBAG 100 ML IV SCH (18:24)
[2024-03-15 18:25] LABS: LACTIC ACID, VENOUS 2.7 mmol/L (0.5-2.2)
[2024-03-15] MEDS: SODIUM CHLORIDE 0.9% 1,000 ML IV SCH (19:08)
--- NOTE | 2024-03-15 20:48 | CT Report ---
PROCEDURE: CT Angio Chest INDICATIONS: new sudden hypoxia, chest discomfort and sob CONTRAST: omni 300, 100 TECHNIQUE: After the administration of intravenous contrast, 2 mm axial images were acquired from the pulmonary apices to the posterior costophrenic angles during the arterial phase. In addition, 1 mm lung kernel and 5 mm soft tissue kernel reconstructions were performed. 3-dimensional coronal oblique maximum int ensity projection (MIP) reformats, 8 mm axial MIP, and 5 mm coronal and sagittal MPR reformats were t hen performed through the thorax. For radiation dose reduction, the following was used: automated exp osure control, adjustment of mA and/or kV according to patient size. COMPARISON: None. FINDINGS: Image quality: Excellent. Large vessels: No filling defects within the opacified pulmonary arteries, accounting for motion and contrast timing. The distal segmental and subsegmental pulmonary arteries are not well evaluated. No evidence of acute aortic syndrome or aortic aneurysm. Lungs and pleura: Elevation right hemidiaphragm. Scarring/atelectasis versus consolidation at the rig ht base. No pleural effusions. No pneumothorax. No suspicious pulmonary nodules which require follow up. Mediastinum: Heart size is normal. No pericardial effusion. No large vessel abnormality. No mediastin al adenopathy by size criteria. Chest wall and lower neck: Thyroid is unremarkable. No axillary or supraclavicular adenopathy by size . Bones: No aggressive osseous abnormality. Upper Abdomen: Unremarkable. IMPRESSION: 1.No pulmonary embolus. 2.Scarring/atelectasis versus consolidation at the right base. Reviewed by: Bird Mace MD on 03/15/2024 8:47 PM PST Approved by: Bird Mace MD on 03/15/2024 8:47 PM PST Station ID: [id number]
[2024-03-15] MEDS: INSULIN GLARGINE-YFGN 300 UNIT/3 ML PEN SUBQ SCH (21:32)
[2024-03-15] MEDS: SODIUM BICARBONATE 650 MG TABLET PO ONE (21:33)
[2024-03-16] MEDS: ONDANSETRON 4 MG/2 ML VIAL IVP PRN (00:12)
[2024-03-16] MEDS: ACETAMINOPHEN 325 MG TABLET PO PRN (00:12)
[2024-03-16] MEDS ORDERED: VANCOMYCIN INJ 1.5 GM in SODIUM CHLORIDE 0.9% 500 ML IV SCH (04:00)
[2024-03-16 05:27] LABS: BASOPHILS % (AUTO) 0.4 %; EOSINOPHILS % (AUTO) 0.4 %; HCT - HEMATOCRIT 44.1 % (42.0-52.0); HGB - HEMOGLOBIN 14.9 g/dL (14.0-18.0); LYMPHOCYTES # (AUTO) 0.2 10^3/uL (1.5-3.5); LYMPHOCYTES % (AUTO) 8.5 %; MEAN CORPUSCULAR HEMOGLOBIN 29.4 pg (27.0-31.0); MEAN CORPUSCULAR HGB CONC 33.8 g/dL (32.0-36.0); MEAN PLATELET VOLUME 10.5 fL (7.4-11.4); MONOCYTES # (AUTO) 0.1 10^3/uL (0.0-1.0); MONOCYTES % (AUTO) 4.6 %; NEUTROPHILS # (AUTO) 2.4 10^3/uL (1.5-6.6); NEUTROPHILS % (AUTO) 85.7 %; RED BLOOD COUNT 5.07 10^6/uL (4.70-6.10); WHITE BLOOD COUNT 2.8 x10^3/uL (4.8-10.8)
[2024-03-16 05:43] LABS: CALCIUM 8.2 mg/dL (8.5-10.3); CREATININE 1.3 mg/dL (0.6-1.3); POTASSIUM 4.2 mmol/L (3.5-4.5)
[2024-03-16 05:55] LABS: PLT - PLATELET COUNT 17 10^3/uL (130-450); SLIDE REVIEW? Indicated
[2024-03-16 06:00] LABS: PLATELET ESTIMATE, MANUAL DECREASED (<130,000) (NORMAL); PLATELET MORPHOLOGY NORMAL APPEARANCE (NORMAL); RBC MORPHOLOGY (MULTIPLE) NORMAL APPEARANCE (NORMAL)
[2024-03-16 06:01] LABS: DIFFERENTIAL COMMENT MANUAL=AUTO DIFF
[2024-03-16 06:47] LABS: BASOPHILS % (AUTO) 0.4 %; HCT - HEMATOCRIT 43.2 % (42.0-52.0); HGB - HEMOGLOBIN 14.6 g/dL (14.0-18.0); LYMPHOCYTES # (AUTO) 0.3 10^3/uL (1.5-3.5); LYMPHOCYTES % (AUTO) 9.7 %; MEAN CORPUSCULAR HEMOGLOBIN 29.1 pg (27.0-31.0); MEAN CORPUSCULAR HGB CONC 33.8 g/dL (32.0-36.0); MEAN CORPUSCULAR VOLUME 86.1 fL (80.0-94.0); MEAN PLATELET VOLUME 9.1 fL (7.4-11.4); MONOCYTES # (AUTO) 0.1 10^3/uL (0.0-1.0); MONOCYTES % (AUTO) 4.5 %; NEUTROPHILS # (AUTO) 2.3 10^3/uL (1.5-6.6); RED BLOOD COUNT 5.02 10^6/uL (4.70-6.10); RED CELL DISTRIBUTION WIDTH 12.9 % (12.0-15.0); WHITE BLOOD COUNT 2.7 x10^3/uL (4.8-10.8)
[2024-03-16 06:51] LABS: PLT - PLATELET COUNT 15 10^3/uL (130-450)
[2024-03-16] MEDS: INSULIN GLARGINE-YFGN 300 UNIT/3 ML PEN SUBQ SCH (08:50)
[2024-03-16] MEDS: TAMSULOSIN 0.4 MG CAPSULE PO SCH (08:51)
[2024-03-16] MEDS: ENOXAPARIN 40 MG/0.4 ML SYRINGE SUBQ SCH (08:53)
[2024-03-16 10:37] LABS: PT - PROTHROMBIN TIME 21.1 secs (9.9-12.6)
[2024-03-16 11:05] LABS: ESTIMATED AVERAGE GLUCOSE 226 mg/dL (70-100); HEMOGLOBIN A1c% 9.5 % (4.27-6.07)
[2024-03-16 11:44] LABS: ALBUMIN 3.6 g/dL (3.2-5.5)
[2024-03-16 11:52] LABS: BILIRUBIN,DIRECT 1.6 mg/dL (0.03-0.18); BILIRUBIN,TOTAL 3.5 mg/dL (0.2-1.0); TOTAL PROTEIN 5.3 g/dL (6.4-8.9)
--- NOTE | 2024-03-16 11:57 | PHARMACY PROGRESS NOTE ---
Best Possible Medication History Admit Date and Time: 03/15/24 [id number] Home Medications Medication Instructions Recorded Confirmed Type glipizide 5 mg tablet 5 mg PO ONCE 03/15/24 03/16/24 History metformin 500 mg tablet,extended 500 mg PO BID 03/15/24 03/16/24 History release 24 hr [facility] Statement: As the person ultimately responsible for medication therapy, providers are able to order a medication from an existing home medication list in [facility] via the "Reconcile Routine" prior to Confirmation of that medication by senior technical support analyst. Such practice is discouraged except when the physician, in their clinical judgment, deems that a medical need exists for a medication without regard to previous use.
[2024-03-16] MEDS: INSULIN LISPRO 300 UNIT/3 ML PEN SUBQ SCH (12:06)
[2024-03-16] MEDS: IBUPROFEN 600 MG TABLET PO PRN (12:12)
[2024-03-16 16:52] VITALS: O2SAT 97
--- NOTE | 2024-03-16 20:41 | Discharge Summary ---
Discharge Summary Admit Date: 03/15/24 Discharge Date: 03/16/24 Discharging Provider: Catherine Mohamud MD Primary Care Provider: Celio Sepulveda MD Code Status: Attempt Resuscitation Discharge Facility Name: [facility] DIAGNOSES Discharge Diagnoses with Status of Each Condition: 1. Sepsis 2. Lactic acidosis 3. Pneumonia 4. Elevated liver enzymes 5. Fatty liver 6. Uncontrolled type 2 diabetes mellitus with hyperglycemia without long-term use of insulin 7. Acute kidney injury 8. Hypertension 9. Uncontrolled fever 10. Prostatism 11. Hematuria 12. 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 He states that he woke up at 3 in the morning on March 14 with his teeth chattering. Sudden onset. The next day he managed to deliver some cattle for [place], came home and just spent the rest of his day asleep. Fever was up to 106. Today, when the fever would not go away with Motrin and Tylenol he came to the emergency room. His last recent travel was to go grouse hunting in December. He did not drink any ground water. He drank his own bottle water that he took with him. Otherwise he has been home. I do have well water. He drinks that. As far as he knows the water is okay. It supposed to be checked every year but he cannot remember when the last time it was. The family drinks from the same well and no one else is sick. 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 He is shoveling maneuver, works his herds, and does have exposure to a barn. Nobody else in his family is sick. He has not had any changes in diet. This year he did have a bout of diarrhea that went on for several weeks. He noticed that the diarrhea only happened when he was home but not when he was traveling for work in [place]. He finally figured out that he thinks it was a crack in his coffee cup. It was a double lumen cup. That may be bacteria got caught on it and he was drinking it. Once he stopped drinking out of that cup, his diarrhea stopped. He did have a colonoscopy about 11 years ago. It was normal. On review of systems he wears glasses, but denies photophobia, headache, sore throat, runny nose, eustachian tube dysfunction or ear pain. He denies neck pain, adenopathy of his neck. He denies cough, chest congestion, chest pain, pleuritic or otherwise. He has no history of lung disease. He chews tobacco but does not smoke. He denies chest pain, palpitations, any recent change in cardiovascular endurance until he got this fever. He has no pedal edema. Orthopnea. Right now he has diffuse musculoskeletal pain from the fever. He is miserable with it. But no specific joint pain, skin changes, body rashes. He denies depression, anxiety. He has been under tremendous amount of stress. 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 He is awaiting the final vote count. He has developed decree stream, nocturia once at night. He thinks he may be developing prostate problems. But there has been no urgency, frequency, dysuria or flank pain. No blood in his urine. Other than the diarrhea no other change in bowel habits. Denies unexpected weight changes, weight gains. No heat or cold intolerance. He denies seizures, syncope, memory loss. Denies photophobia, headache, nuchal rigidity. In the emergency room he was examined by the primary ER provider and he has not been hypotensive. In fact blood pressure has been on the high side in the 140s systolic and occasionally as high as 189/96. O2 sats have been normal on room air. Pulse has been tachycardic consistently. Mainly associated with fever. High as 118. Other than the fever, his exam is been normal. Sodium is mildly hyponatremic 130 for him. Chloride is low at 95. His GFR has dropped to 56 from his normal 88. His creatinine has increased to 1.3 from his normal 0.9. Glucose is 295. He is taking his glipizide and his metformin. Lactic acid is 7.2. Total bili has been intermittently elevated in the past but the highest has been is 1.1. He is 2.9 tonight. AST and ALT in the past have been normal. And tonight they are 420 and 395 respectively. White cell count is normal at 7.4. Hemoglobin 16.2. Stable from previous labs. Platelet is low at 103 and he was 275 in the past. Urinalysis has a specific gravity that is high at 1.030 so I believe he is dehydrated. He has proteinuria 30 mg/dL. He has glucosuria over 1000 mg/dL. Ketones are high at 15. Occult blood is large, with 6-10 red cells per high-powered field. No leukocyte Estrace. No urine bilirubin. No urine urobilinogen. Rare renal tubular cells. Because his liver enzymes were elevated he underwent an ultrasound but it was limited due to the patient's obesity and overlying bowel gas. He has borderline hepatomegaly and hepatic steatosis with no discrete lesions. There is no sonographic evidence of cholelithiasis, acute cholecystitis. Pancreas not well- visualized. As such a CT of the abdomen was done to visualize his belly better and he has scarring and atelectasis in the posterior medial right lung. Liver has hepatomegaly with moderate to severe hepatic steatosis. Gallbladder without stones. Or wall thickening. No splenomegaly and no intrahepatic or extrahepatic dilation. No pancreatic ductal dilatation. No adrenal nodules. No renal cyst, no hydronephrosis. There is no commentary on the prostate. Stomach, bowel, peritoneum are normal. Appendix is visualized and within normal limits. No central or retroperitoneal adenopathy. No aortic aneurysms, patent portal vein. He has a small fat-containing umbilical hernia. He states that his diabetes is controlled. He denies any retinal, renal, neurologic complications. He has never been hospitalized. He has no orthopedic injuries. And is never had surgery. HOSPITAL COURSE Hospital Course: I kept the patient on broad-spectrum antibiotic therapy with vancomycin, Flagyl, and Zosyn. My main concern was some type of zoonotic infection that I would like to be able to diagnose. He remained febrile throughout his entire stay. He was miserable with the fever and tachycardic because of it. I contacted [facility]. Initially I spoke to the intensive care unit but they felt that this patient did not necessarily warrant intensive care. I also spoke to 2 different attendings and 2 different campuses because of his need for GI consult for the hepatitis I was seeing on [facility]. One campus would have a GI specialist; the other did not. He ended up going to [facility]. At the time of discharge, he was still hemodynamically stable and still febrile. In spite of fluids and antibiotic therapy, he still had lactic acidosis. His liver enzymes worsened. Acute hepatitis panel was negative for hepatitis A, B, C. Blood cultures were negative at 2 days. In the brief time he was here, he started becoming pancytopenic with a sharp drop in his platelets. D-dimer was quite high. CT pulmonary angiogram was done for PE and negative but he had right lower lobe consolidation. Did order a send out lab for leptospirosis but was not able to be done before he was discharged. I was warned by the lab that it would be a send out lab that may take 7 to 10 days to get back. ALLERGIES Allergies Allergy/AdvReac Type Severity Reaction Status Date / Time Sulfa (Sulfonamide Allergy Unknown Hives Verified 03/15/24 09:55 Antibiotics) MEDICATIONS Ambulatory Orders Medication Instructions Recorded Confirmed glipizide 5 mg tablet 5 mg PO ONCE 03/15/24 03/16/24 metformin 500 mg tablet,extended 500 mg PO BID 03/15/24 03/16/24 release 24 hr PHYSICAL EXAM AT DISCHARGE General Appearance: positive Moderate distress and Lethargic Eyes Bilateral: positive PERRL and EOMI ENT: positive Dry mucous membranes Neck: positive No JVD; negative Lymphadenopathy (R), Lymphadenopathy (L) or Stiff neck Respiratory: positive Breath sounds nml and Other (Tachypneic from fever no use of accessory muscles) Cardiovascular: positive Regular rate & rhythm and Tachycardia Abdomen: positive No organomegaly, Nml bowel sounds and Tenderness (Diffuse. But no rebound or guarding.) Skin: positive Diaphoresis and Pallor Extremities: positive Non-tender, Full ROM and Nml appearance Neurologic/Psychiatric: positive Oriented x3 (But occasionally hallucinating. Occasionally confused.), CN's nml (2-12) and Motor nml LABS 03/16/24 06:37 03/16/24 05:17 SEPSIS Current Stage of Sepsis: Sepsis Possible source of Sepsis: Unknown Sepsis Criteria: Recorded Temperature greater than 38.3C or Less than 36C, Recorded Heart Rate greater than 90 bpm and Metabolic: lactate > 2 mmol/L TIME SPENT Time Spent in Discharge (Minutes): 40 Discharge Plan Discharge Patient Disposition: 02 Transfer Acute Care Hosp Condition: Stable Medically Cleared Date:: 03/16/24 Prescriptions: Held metformin 500 mg tablet extended release 24 hr 500 mg PO BID Hold Instructions: Resume on 03/25/24. Patient Comments: TAKE TWO TABLETS BY MOUTH TWICE DAILY WITH MEALS glipizide 5 mg tablet 5 mg PO ONCE Hold Instructions: Resume on 03/25/24. Patient Comments: TAKE ONE TABLET BY MOUTH ONE TIME DAILY Print Language: [place] Follow-up Care: Celio Sepulveda MD [Primary Care Provider] -
[2024-03-17 05:09] LABS: HBsAG SCREEN Negative (Negative); HCV AB Non Reactive (Non Reactive); HEPATITIS B CORE IGM AB Negative (Negative)
== END 2024-03-16 17:06 | disposition short-term general hospital (02) | DRG 871 ==
LOC: ED 09:33 → MS3 16:36
PROVIDERS: ADMIT Specialist; ATTEND Specialist
DX: G93.40 Encephalopathy, unspecified; R06.02 Shortness of breath; N40.0 Benign prostatic hyperplasia without lower urinary tract symptoms; G47.33 Obstructive sleep apnea (adult) (pediatric); I10 Essential (primary) hypertension; E87.20 Acidosis, unspecified; E87.8 Other disorders of electrolyte and fluid balance, not elsewhere classified; N17.9 Acute kidney failure, unspecified; E78.5 Hyperlipidemia, unspecified; Z79.899 Other long term (current) drug therapy; Z20.818 Contact with and (suspected) exposure to other bacterial communicable diseases; E87.1 Hypo-osmolality and hyponatremia; Z79.84 Long term (current) use of oral hypoglycemic drugs; Z20.828 Contact with and (suspected) exposure to other viral communicable diseases; R31.9 Hematuria, unspecified; R74.01 Elevation of levels of liver transaminase levels; E66.01 Morbid (severe) obesity due to excess calories; E11.65 Type 2 diabetes mellitus with hyperglycemia; J18.9 Pneumonia, unspecified organism; Z20.822 Contact with and (suspected) exposure to COVID-19; A41.9 Sepsis, unspecified organism; Z68.30 Body mass index [BMI] 30.0-30.9, adult; D61.818 Other pancytopenia; K76.0 Fatty (change of) liver, not elsewhere classified